=== PATIENT | female | born 1985 | race Caucasian/White ===

== ENCOUNTER 2022-05-26 01:01 | Inpatient (IN) | payer OTHER ==
[~2022-05-26 01:01] MED LIST: ceFAZolin SODIUM 1 GM VIAL IVPB ONE
[2022-05-26] MEDS ORDERED: ACETAMINOPHEN 1000 MG/100 ML BAG IVPB ONE (01:42)
[2022-05-26] MEDS ORDERED: LACTATED RINGERS SOLUTION 1000 ML INFUS.BAG IV ONE ×4 (01:42→06:05)
[2022-05-26] MEDS ORDERED: ACETAMINOPHEN INJECTION 100 ML IVPB ONE ×2 (02:18→12:49)
[2022-05-26 03:15] LABS: BASO % 0.2 % (0-2.0); EOS % 0.3 % (0-4.5); HEMATOCRIT 42.4 % (32.4-45.2); HEMOGLOBIN 14.1 GM/dL (10.7-15.3); LYMPH % 11.6 % (8-40); MCH 26.5 pg (25.7-33.7); MCHC 33.2 g/dl (32.0-36.0); MEAN CELL VOLUME 79.7 fl (80-96); MEAN PLT VOLUME 7.2 fl (7.5-11.1); MONO % 3.9 % (3.8-10.2); PLATELET COUNT 281 10^3/uL (134-434); RBC 5.32 M/mm3 (3.60-5.2); RDW 14.3 % (11.6-15.6); WHITE BLOOD COUNT 12.1 K/mm3 (4.0-10.0)
[2022-05-26 03:21] LABS: INR 1.05 (0.83-1.09); PROTHROMBIN TIME (PATIENT) 12.1 SEC (9.7-13.0)
[2022-05-26 03:24] LABS: ACTIVATED PTT 28.5 SECONDS (25.2-36.5)
[2022-05-26 03:36] LABS: CALCIUM 9.9 mg/dL (8.5-10.1)
[2022-05-26 03:37] LABS: ALBUMIN 3.9 g/dl (3.4-5.0); BLOOD UREA NITROGEN 11.1 mg/dL (7-18)
[2022-05-26 03:40] LABS: CREATININE 0.7 mg/dL (0.55-1.3)
[2022-05-26 03:41] LABS: BILIRUBIN,TOTAL 0.4 mg/dL (0.2-1)
[2022-05-26 03:52] LABS: LACTIC ACID 3.4 mmol/L (0.4-2.0)
[2022-05-26] MEDS ORDERED: PIPERACILLIN/TAZOB 4.5 GM 4.5 GM in DEXTROSE 5%-WATER 100 ML IVPB ONE (05:40)
[2022-05-26] MEDS ORDERED: ACETAMINOPHEN 1000 MG/100 ML BAG IVPB PRN (05:52)
[2022-05-26] MEDS ORDERED: SODIUM CHLORIDE 1,000 ML IV SCH (06:00)
[2022-05-26] MEDS ORDERED: PIPERACILLIN/TAZOB 4.5 GM 4.5 GM/100 ML BAG IVPB ONE (06:28)
[2022-05-26 07:04] LABS: CHOLESTEROL 147 mg/dL (50-200)
[2022-05-26 07:05] LABS: TRIGLYCERIDES 215 mg/dL (0-150)
[2022-05-26 07:07] LABS: LDL CHOLESTEROL (ONLY SJRH) 88 mg/dL (5-100)
[2022-05-26 07:08] LABS: HDL CHOLESTEROL 29 mg/dL (40-60)
[2022-05-26] MEDS: INSULIN SLIDING SCALE (NOVOLOG) 1 VIAL SQ SCH ×4 (08:25→22:27)
[2022-05-26 09:07] VITALS: BMI 51.9
[2022-05-26] MEDS ORDERED: LISINOPRIL 20 MG TABLET PO SCH (10:00)
[2022-05-26] MEDS ORDERED: LACTATED RINGERS SOLUTION 1,000 ML IV SCH (10:15)
[2022-05-26 10:55] LABS: BASO % 0.2 % (0-2.0); EOS % 0.2 % (0-4.5); HEMATOCRIT 39.4 % (32.4-45.2); HEMOGLOBIN 12.8 GM/dL (10.7-15.3); LYMPH % 13.7 % (8-40); MCH 25.8 pg (25.7-33.7); MCHC 32.4 g/dl (32.0-36.0); MEAN CELL VOLUME 79.7 fl (80-96); MONO % 4.3 % (3.8-10.2); NEUT % 81.6 % (42.8-82.8); PLATELET COUNT 270 10^3/uL (134-434); RBC 4.95 M/mm3 (3.60-5.2); RDW 14.1 % (11.6-15.6); WHITE BLOOD COUNT 12.7 K/mm3 (4.0-10.0)
[2022-05-26] MEDS ORDERED: ONDANSETRON 4 MG/2 ML VIAL ONE (11:04)
[2022-05-26] MEDS ORDERED: LIDOCAINE HCL/PF 2% SDV 5ML VIAL ONE (11:04)
[2022-05-26] MEDS ORDERED: DEXAMETHASONE SOD PHOSPHATE 4 MG/1 ML VIAL ONE (11:04)
[2022-05-26] MEDS ORDERED: ROCURONIUM BROMIDE 50 MG/5 ML SYRINGE ONE (11:05)
[2022-05-26] MEDS ORDERED: PROPOFOL 20 ML ONE ×2 (11:05→11:52)
[2022-05-26] MEDS ORDERED: MIDAZOLAM HCL 2 MG/2 ML SINGLE DOSE VIAL ONE ×2 (11:05→14:34)
[2022-05-26 11:12] LABS: CALCIUM 9.4 mg/dL (8.5-10.1)
[2022-05-26 11:13] LABS: ALBUMIN 3.5 g/dl (3.4-5.0); BLOOD UREA NITROGEN 8.6 mg/dL (7-18); MAGNESIUM 1.6 mg/dL (1.8-2.4)
[2022-05-26 11:16] LABS: PHOSPHOROUS 3.2 mg/dL (2.5-4.9)
[2022-05-26 11:17] LABS: BILIRUBIN,TOTAL 0.4 mg/dL (0.2-1); CREATININE 0.6 mg/dL (0.55-1.3); TOT PROT 7.1 g/dl (6.4-8.2)
[2022-05-26] MEDS ORDERED: KETOROLAC TROMETHAMINE 30 MG/1 ML VIAL ONE (13:24)
[2022-05-26] MEDS ORDERED: LIDOCAINE HCL 1%, 10 MG/ML (20ML VIAL) NR ONE (13:34)
[2022-05-26] MEDS ORDERED: BUPIVACAINE HCL/PF 0.5% (5MG/ML) 10 ML VIAL NR ONE (13:34)
[2022-05-26] MEDS ORDERED: PROPOFOL 1,000,000 MCG/100 ML VIAL ONE (13:39)
[2022-05-26] MEDS ORDERED: PROPOFOL 1,000,000 MCG/100 ML VIAL IVPB SCH (13:45)
[2022-05-26] MEDS ORDERED: METOPROLOL TARTRATE 5 MG/5 ML VIAL ONE (14:50)
[2022-05-26] MEDS ORDERED: METOPROLOL TARTRATE 5 MG/5 ML VIAL IVPUSH PRN (14:52)
[2022-05-26] MEDS ORDERED: oxyCODONE HCL 5 MG TABLET PO PRN (15:51)
[2022-05-26] MEDS: LACTATED RINGERS SOLUTION 1,000 ML IV SCH (17:26)
[2022-05-26] MEDS: ACETAMINOPHEN 500 MG TABLET (FP) PO SCH (17:32)
[2022-05-26] MEDS: KETOROLAC TROMETHAMINE 30 MG/1 ML VIAL IVPUSH SCH (21:20)
[2022-05-26] MEDS: HEPARIN NA (PORCINE) 5,000 UNITS/ML 1ML VIAL SQ SCH (21:22)
[2022-05-26] MEDS: INSULIN (LEVEMIR) 100 UNITS/ML UNITS SQ SCH (22:25)
[2022-05-27] MEDS: ACETAMINOPHEN 500 MG TABLET (FP) PO SCH ×3 (00:52→17:45)
[2022-05-27] MEDS: KETOROLAC TROMETHAMINE 30 MG/1 ML VIAL IVPUSH SCH ×2 (05:05→11:56)
[2022-05-27] MEDS: HEPARIN NA (PORCINE) 5,000 UNITS/ML 1ML VIAL SQ SCH ×3 (06:38→21:22)
[2022-05-27] MEDS: INSULIN (LEVEMIR) 100 UNITS/ML UNITS SQ SCH ×2 (06:39→21:22)
[2022-05-27] MEDS: INSULIN SLIDING SCALE (NOVOLOG) 1 VIAL SQ SCH ×4 (06:40→21:22)
[2022-05-27 08:51] LABS: BASO % 0.5 % (0-2.0); EOS % 0.4 % (0-4.5); HEMATOCRIT 38.5 % (32.4-45.2); HEMOGLOBIN 12.3 GM/dL (10.7-15.3); LYMPH % 22.7 % (8-40); MCH 25.5 pg (25.7-33.7); MCHC 31.9 g/dl (32.0-36.0); MEAN CELL VOLUME 80.1 fl (80-96); MEAN PLT VOLUME 7.2 fl (7.5-11.1); MONO % 6.6 % (3.8-10.2); NEUT % 69.8 % (42.8-82.8); PLATELET COUNT 283 10^3/uL (134-434); RBC 4.81 M/mm3 (3.60-5.2); RDW 14.6 % (11.6-15.6); WHITE BLOOD COUNT 10.7 K/mm3 (4.0-10.0)
[2022-05-27] MEDS ORDERED: BENZOCAINE/MENTH/CETYLPYRD CL 1 EACH LOZENGE MM PRN (10:04)
[2022-05-27 10:08] LABS: ALBUMIN 3.2 g/dl (3.4-5.0); BLOOD UREA NITROGEN 16.9 mg/dL (7-18); CALCIUM 8.7 mg/dL (8.5-10.1)
[2022-05-27 10:11] LABS: CREATININE 0.6 mg/dL (0.55-1.3)
[2022-05-27 10:13] LABS: BILIRUBIN,TOTAL 0.5 mg/dL (0.2-1); TOT PROT 6.6 g/dl (6.4-8.2)
[2022-05-27] MEDS: LISINOPRIL 20 MG TABLET PO SCH (10:16)
[2022-05-27 14:20] LABS: EPI CELLS >36 /uL (0-25.1); HYALINE CASTS 4 /uL (0-3.1); PH,URINE 5.5 (5.0-8.0); URINE APPEARANCE CLOUDY; URINE BACTERIA 281 /uL (0-1359); URINE BILIRUBIN NEGATIVE (NEGATIVE); URINE COLOR DK YELLOW; URINE GLUCOSE (UA) 1+ (NEGATIVE); URINE KETONE TRACE (NEGATIVE); URINE LEUK ESTERASE NEGATIVE (NEGATIVE); URINE NITRITE NEGATIVE (NEGATIVE); URINE PROTEIN 1+ (NEGATIVE); URINE RBC 9 /uL (0-23.9); URINE WBC 33 /uL (0-25.8)
[2022-05-27] MEDS: LACTATED RINGERS SOLUTION 1,000 ML IV SCH (17:45)
[2022-05-27] MEDS: CEFAZOLIN 1 GM in DEXTROSE 5%-WATER - 50 ML IVPB SCH (17:51)
[2022-05-28] MEDS: ACETAMINOPHEN 500 MG TABLET (FP) PO SCH ×2 (00:19→10:00)
[2022-05-28] MEDS: LACTATED RINGERS SOLUTION 1,000 ML IV SCH (02:04)
[2022-05-28] MEDS: CEFAZOLIN 1 GM in DEXTROSE 5%-WATER - 50 ML IVPB SCH ×2 (02:04→10:02)
[2022-05-28] MEDS: HEPARIN NA (PORCINE) 5,000 UNITS/ML 1ML VIAL SQ SCH ×2 (06:39→16:40)
[2022-05-28] MEDS: INSULIN SLIDING SCALE (NOVOLOG) 1 VIAL SQ SCH ×2 (06:40→12:14)
[2022-05-28] MEDS: INSULIN (LEVEMIR) 100 UNITS/ML UNITS SQ SCH (06:40)
[2022-05-28 09:57] LABS: BASO % 0.4 % (0-2.0); EOS % 0.9 % (0-4.5); HEMATOCRIT 35.9 % (32.4-45.2); HEMOGLOBIN 11.8 GM/dL (10.7-15.3); LYMPH % 20.7 % (8-40); MCH 26.6 pg (25.7-33.7); MEAN CELL VOLUME 80.5 fl (80-96); MEAN PLT VOLUME 6.8 fl (7.5-11.1); MONO % 7.7 % (3.8-10.2); NEUT % 70.3 % (42.8-82.8); PLATELET COUNT 225 10^3/uL (134-434); RBC 4.46 M/mm3 (3.60-5.2); RDW 14.9 % (11.6-15.6); WHITE BLOOD COUNT 7.5 K/mm3 (4.0-10.0)
[2022-05-28 10:00] VITALS: BP 132/67; PULSE 92; RESP 18; TEMP 98.8
[2022-05-28 10:02] LABS: CALCIUM 8.7 mg/dL (8.5-10.1)
[2022-05-28] MEDS: LISINOPRIL 20 MG TABLET PO SCH (10:02)
[2022-05-28 10:03] LABS: BLOOD UREA NITROGEN 13.4 mg/dL (7-18); MAGNESIUM 1.9 mg/dL (1.8-2.4); PHOSPHOROUS 3.2 mg/dL (2.5-4.9)
[2022-05-28 10:04] LABS: TOT PROT 6.4 g/dl (6.4-8.2)
[2022-05-28 10:05] LABS: BILIRUBIN,TOTAL 0.4 mg/dL (0.2-1)
[2022-05-28 10:06] LABS: CREATININE 0.6 mg/dL (0.55-1.3)
== END 2022-05-28 18:43 | disposition home or self-care (01) | DRG 354 ==
LOC: JER 01:01 → JERBED 05:22 → J8W 07:35
PROVIDERS: ADMIT Family Medicine; ATTEND Internal Medicine
PROC: 0WQF0ZZ Repair Abdominal Wall, Open Approach (ICD-10-PCS; principal; 2022-05-26 11:15)
PROC: 0DTU0ZZ Resection of Omentum, Open Approach (ICD-10-PCS; 2022-05-26 11:15)
DX: K43.6 Other and unspecified ventral hernia with obstruction, without gangrene (principal); E87.20 Acidosis, unspecified; Z68.43 Body mass index [BMI] 50.0-59.9, adult; I10 Essential (primary) hypertension; E66.01 Morbid (severe) obesity due to excess calories; F41.9 Anxiety disorder, unspecified; L40.9 Psoriasis, unspecified; E11.65 Type 2 diabetes mellitus with hyperglycemia; D72.829 Elevated white blood cell count, unspecified
CPT/HCPCS: 0241U-QW; 36415; 71045-TC-FY; 74177-TC; 80053; 80061; 81003; 82962; 83036; 83605; 83735; 84100; 84443; 84703; 85025; 85610; 85730; 86850; 86900; 86901; 87040; 87086; 88302-TC; 93005; 93010; 94002; 94660; 94760; 99285-25; J1644; Q9967